=== PATIENT | female | born 1995 | race American Indian/Alaskan Native ===

== ENCOUNTER 2020-12-29 07:46 | Emergency (ER) | payer SELFPAY ==
[2020-12-29 07:58] VITALS: BP 153/97
--- NOTE | 2020-12-29 08:37 | Emergency Department Report ---
ED Female HPI - General Chief complaint: Urogenital-Female Stated complaint: VAGINAL DISCOMFORT/PAIN Time Seen by Provider: 12/29/20 08:32 Source: patient Mode of arrival: Ambulatory Limitations: No Limitations - History of Present Illness Initial comments: 25-year-old -[place] female states that she has vaginal discomfort for 3 days. Patient denies any vaginal discharge or vaginal bleeding. She reports her last menstrual period was 12/08/2020 and took a test 2 days ago and was negative. Patient is sexually active. MD Complaint: dysuria Onset/Timin -: days(s) Location: other (In her vagina) Severity scale (0 -10): 3 Improves with: none Worsens with: urination Are you Now?: No Last Menstrual Period: 12/08/20 EDC: 09/14/21 Associated Symptoms: dysuria. denies: vaginal discharge, vaginal bleeding, abdominal pain, nausea/vomiting, fever/chills, headaches, loss of appetite, hematuria - Related Data Sexually active: Yes Allergies Allergy/AdvReac Type Severity Reaction Status Date / Time No Known Allergies Allergy Verified 12/29/20 07:53 ED Review of Systems ROS: Stated complaint: VAGINAL DISCOMFORT/PAIN Other details as noted in HPI Comment: All other systems reviewed and negative ED Past Medical Hx - Past Medical History Previous Medical History?: No - Surgical History Past Surgical History?: No ED Physical Exam - General Limitations: No Limitations General appearance: alert, in no apparent distress - Head Head exam: Present: atraumatic, normocephalic - Eye Eye exam: Present: normal appearance - ENT ENT exam: Present: normal external ear exam - Neck Neck exam: Present: normal inspection, full ROM - Respiratory Respiratory exam: Absent: accessory muscle use - Cardiovascular Cardiovascular Exam: Present: regular rate - Extremities Exam Extremities exam: Present: normal inspection, full ROM - Back Exam Back exam: Present: normal inspection - Neurological Exam Neurological exam: Present: alert, oriented X3, normal gait - Psychiatric Psychiatric exam: Present: normal affect, normal mood - Skin Skin exam: Present: warm, dry, intact, normal color. Absent: rash ED Course Vital Signs 12/29/20 07:55 Temperature 98 F Pulse Rate 61 Respiratory 16 Rate Blood Pressure 153/97 [Left] O2 Sat by Pulse 100 Oximetry ED Medical Decision Making - Medical Decision Making 25-year-old -[place] female states that she has vaginal discomfort for 3 days. Patient denies any vaginal discharge or vaginal bleeding. She reports her last menstrual period was 12/08/2020 and took a test 2 days ago and was negative. Patient is sexually active. Discussed with patient will check her urinalysis. Patient is to follow-up at [facility] for female examination. Fidel with patient she can take Tylenol ibuprofen. Critical care attestation.: If time is entered above; I have spent that time in minutes in the direct care of this critically ill patient, excluding procedure time. ED Disposition Clinical Impression: Pelvic pain Disposition: 07 LEFT AWOL/ELOPED Is pt being admited?: No Does the pt Need Aspirin: No Condition: Undetermined Referrals: PRIMARY CARE, [Primary Care Provider] - 3-5 Days
== END 2020-12-29 09:44 | disposition left against medical advice (07) ==
LOC: ED 07:46
DX: R10.2 Pelvic and perineal pain (principal); N89.8 Other specified noninflammatory disorders of vagina
CPT/HCPCS: 99281